=== PATIENT | male | born 1955 | race Caucasian/White ===

== ENCOUNTER 2017-10-07 11:06 | Emergency (ER) | payer BC ==
[2017-10-07 13:17] VITALS: BP 128/96
[2017-10-07] MEDS ORDERED: Albuterol 2.5 MG/3 ML NEB.SOL* (0.083%) INH ONE (13:46)
--- NOTE | 2017-10-07 13:51 | UC ---
General HPI - HPI Summary HPI Summary: pt is c/o a cough with chest congestion and some wheezing for the past week. he notes it began prior to that with scratchy throat. his brother had the same but got better. he notes this occurs often for the past 2 years. denies hx heart/ lung disease. - History of Current Complaint Chief Complaint: UCRespiratory Stated Complaint: UPPER RESPIRATORY Time Seen by Provider: 10/07/17 13:26 Hx Obtained From: Patient Onset/Duration: Gradual Onset Timing: Constant Pain Intensity: 0 Aggravating: deep breaths Alleviating: nothing Associated Signs & Symptoms: Positive: Cough, SOB, Wheezing. Negative: Chest Pain, Diaphoresis, Fever - Allergy/Home Medications Allergies/Adverse Reactions: Allergies Allergy/AdvReac Type Severity Reaction Status Date / Time No Known Allergies Allergy Verified 10/07/17 13:12 PMH/Surg Hx/FS Hx/Imm Hx - Additional Past Medical History Additional PMH: SKIN CA - Surgical History Surgical History: Yes Surgery Procedure, Year, and Place: Left Knee Arthroscopy, 1992, [facility] - Social History Occupation: Employed Full-time - [employer] Lives: With Family Alcohol Use: Rare Substance Use Type: None Smoking Status (MU): Never Smoked Tobacco - Immunization History Vaccination Up to Date: Yes Review of Systems Constitutional: Negative Skin: Negative Eyes: Negative ENT: Negative Respiratory: Shortness Of Breath, Cough Cardiovascular: Negative Gastrointestinal: Negative Genitourinary: Negative Motor: Negative Neurovascular: Negative Musculoskeletal: Negative Neurological: Negative Psychological: Negative Is Patient Immunocompromised?: No All Other Systems Reviewed And Are Negative: Yes Physical Exam Triage Information Reviewed: Yes Appearance: Well-Appearing Vital Signs: Initial Vital Signs Temp 99.2 F 10/07/17 13:13 Pulse 78 10/07/17 13:13 Resp 20 10/07/17 13:13 BP 128/96 10/07/17 13:13 Pulse Ox 97 10/07/17 13:13 Vital Signs Reviewed: Yes Eyes: Positive: Conjunctiva Clear ENT: Positive: Pharynx normal, TMs normal. Negative: Nasal congestion, Nasal drainage Neck: Positive: Supple, Nontender, No Lymphadenopathy Respiratory: Positive: No respiratory distress, Decreased breath sounds, Other: - few scattered wheezes Cardiovascular: Positive: RRR, No Murmur Abdomen Description: Positive: Nontender, No Organomegaly, Soft Bowel Sounds: Positive: Present Musculoskeletal: Positive: ROM Intact Neurological: Positive: Alert Skin Exam: Other - pink, warm, dry. scabes from recent dermatology tx to arms. Diagnostics - Radiology No standard instances Xray Interpretation: No Acute Changes Radiology Interpretation Completed By: Radiologist Re-Evaluation - Re-Evaluation Second Eval Re-Evaluation Time: 14:17 - improved aeration and wheezing nearly resolved Course/Dx - Course Course Of Treatment: cxr nad, will tx for bronchospasm and presumptive bacterial infection plus refer to Dr Yates at pt request - Differential Dx - Multi-Symptom Provider Diagnoses: Cough. bronchospasm Discharge - Discharge Plan Condition: Stable Disposition: HOME Prescriptions: Albuterol HFA INHALER* [Ventolin HFA Inhaler*] 2 puff INH Q6H 14 Days #1 mdi Azithromycin TAB* [Zithromax TAB (Z-CJ) 250 mg #6 tabs] 2 tab PO .TODAY, THEN 1 DAILY #1 cj predniSONE [Prednisone] 20 mg PO DAILY 3 Days #3 tablet Patient Education Materials: Acute Cough (ED), Bronchospasm (ED) Referrals: Rio Yates MD [Medical Doctor] -
--- NOTE | 2017-10-07 14:05 | RAD ---
HISTORY: Cough, wheezing COMPARISONS: None VIEWS: 4: Frontal dual-energy and lateral views of the chest. FINDINGS: CARDIOMEDIASTINAL SILHOUETTE: The cardiomediastinal silhouette is normal. KHARI: The khari are normal. PLEURA: The costophrenic angles are sharp. No pleural abnormalities are noted. LUNG PARENCHYMA: The lungs are clear. ABDOMEN: The upper abdomen is clear. There is no subphrenic gas. BONES AND SOFT TISSUES: Degenerative changes are noted along the spine. OTHER: None. IMPRESSION: NO ACTIVE CARDIOPULMONARY DISEASE.
== END 2017-10-07 14:34 | disposition home or self-care (01) ==
LOC: UCCORT 11:06
DX: J98.01 Acute bronchospasm (principal)
CPT/HCPCS: 71046; 99202; G0463